=== PATIENT | female | born 1985 | race Caucasian/White ===

== ENCOUNTER 2018-01-28 06:12 | Emergency (ER) | payer OTHER ==
--- NOTE | 2018-01-28 06:28 | EDM.PDOC ---
<CevallosGiacomo - Last Filed: 01/28/18 07:21> ED HPI GENERAL MEDICAL PROBLEM - General Chief Complaint: Lower Extremity Injury/Pain Stated Complaint: PAIN ON RIGHT SIDE OF LEG Time Seen by Provider: 01/28/18 06:28 Source of Information: Reports: Patient - History of Present Illness INITIAL COMMENTS - FREE TEXT/NARRATIVE: HISTORY AND PHYSICAL: History of present illness: 33-year-old female presented numerous department with chief complaint of back pain with radiation to her right leg after fall yesterday. Patient states that she tripped over a towel on the floor in her bathroom falling on her but predominantly on the right side. She had some immediate pain that thought that the pain would get better with time. States that this morning she woke up and the pain was worse. Pain is predominantly in her lower back radiating into her right lower extremity. She denies any decrease in sensation or strength. She has had decrease in range of motion secondary to pain. She denies any bowel or bladder incontinence. She has never had back problems or injuries prior to this. On exam patient is usually tender to palpation along L3-S1. Pelvis is stable. There is some right paraspinal muscle spasms noted along L3-S1 Review of systems: As per history of present illness and below otherwise all systems reviewed and negative. Past medical history: As per history of present illness and as reviewed below otherwise noncontributory. Surgical history: As per history of present illness and as reviewed below otherwise noncontributory. Social history: No reported history of drug or alcohol abuse. Family history: As per history of present illness and as reviewed below otherwise noncontributory. Physical exam: HEENT: Atraumatic, normocephalic, pupils reactive, negative for conjunctival pallor or scleral icterus, mucous membranes moist, throat clear, neck supple, nontender, trachea midline. Lungs: Clear to auscultation, breath sounds equal bilaterally, chest nontender. Heart: S1S2, regular, negative for clicks, rubs, or JVD. Abdomen: Soft, nondistended, nontender. Negative for masses or hepatosplenomegaly. Negative for costovertebral tenderness. Pelvis: Stable nontender. Genitourinary: Deferred. Rectal: Deferred. Extremities: Atraumatic, negative for cords or calf pain. Neurovascular unremarkable. Neuro: Awake, alert, oriented. Cranial nerves II through XII unremarkable. Cerebellum unremarkable. Motor and sensory unremarkable throughout. Exam nonfocal. Diagnostics: Lumbar x-ray, right hip x-ray Therapeutics: Toradol 60 mg IM 1 Impression: Contusion Plan: [] Leg Pain Score (Numeric/FACES): 8 - Related Data Allergies Allergy/AdvReac Type Severity Reaction Status Date / Time No Known Allergies Allergy Verified 01/28/18 06:32 Home Meds: Home Meds . [No Known Home Meds] 05/25/15 [History] Past Medical History - Past Health History Medical/Surgical History: Denies Medical/Surgical History Social & Family History - Tobacco Use Smoking Status *Q: Current Every Day Smoker Years of Tobacco use: 2 Packs/Tins Daily: 0.2 Course - Vital Signs Last Recorded V/S: Last Vital Signs Temp 97.7 F 01/28/18 06:29 Pulse 67 01/28/18 06:29 Resp 20 01/28/18 06:29 BP 150/110 H 01/28/18 06:29 Pulse Ox 99 01/28/18 06:29 - Orders/Labs/Meds Orders: Active Orders 24 hr Category Date Time Status Hip Min 2V or 3V Rt [CR] Stat Exams 01/28/18 06:31 Taken Lumbar Spine 2 or 3V [CR] Stat Exams 01/28/18 06:31 Taken HCG QUALITATIVE,URINE [URCHEM] Stat Lab 01/28/18 06:55 Ordered Labs: Laboratory Tests 01/28/18 Range/Units 06:55 Urine HCG, Qual NEGATIVE (NEGATIVE) Meds: Medications Discontinued Medications Generic Name Dose Route Start Last Admin Trade Name Maurice PRN Reason Stop Dose Admin Ketorolac Tromethamine 60 mg 01/28/18 06:32 01/28/18 06:41 Toradol IM 01/28/18 06:33 60 mg ONETIME ONE Administration Departure - Departure Disposition: Home, Self-Care 01 Clinical Impression: Contusion - Discharge Information Referrals: PCP,None [Primary Care Provider] - Forms: ED Department Discharge Additional Instructions: Medication as prescribed Return if symptoms persist or worsen Ice 20 minute intervals 3 times daily Crutches as needed Follow-up with primary care on Saturday as scheduled [address] [address] The following information is given to patients seen in the emergency department who are being discharged to home. This information is to outline your options for follow-up care. We provide all patients seen in our emergency department with a follow-up referral. The need for follow-up, as well as the timing and circumstances, are variable depending upon the specifics of your emergency department visit. If you don't have a primary care physician on staff, we will provide you with a referral. We always advise you to contact your personal physician following an emergency department visit to inform them of the circumstance of the visit and for follow-up with them and/or the need for any referrals to a consulting specialist. The emergency department will also refer you to a specialist when appropriate. This referral assures that you have the opportunity for follow-up care with a specialist. All of these measure are taken in an effort to provide you with optimal care, which includes your follow-up. Under all circumstances we always encourage you to contact your private physician who remains a resource for coordinating your care. When calling for follow-up care, please make the office aware that this follow-up is from your recent emergency room visit. If for any reason you are refused follow-up, please contact the [facility] emergency department at and asked to speak to the emergency department charge nurse. <Geo Rich - Last Filed: 01/28/18 08:20> ED HPI GENERAL MEDICAL PROBLEM - History of Present Illness INITIAL COMMENTS - FREE TEXT/NARRATIVE: I've seen and examined the patient by received in sign out Agree with historyNo fever nausea vomiting chills sweats no bowel or urine symptoms no footdrop or saddle anesthesia Gen. no acute distress HEENT grossly within normal limits denies head injury or loss of consciousness Chest clear throughout CV regular rate and rhythm Abdomen benign Extremities full range of motion strength 5 out of 5 no edema no calf pain straight leg raise 30 re- produces leg pain to the level of the right foot Impression Contusion Possible transverse fracture, vertebral Question discogenic pain Therapeutics Toradol 60 IM provided Toradol 10 by mouth 3 times a day #15 no refill Flexeril Follow-up with primary care as scheduled on Definitive disposition and diagnosis pending reevaluation and review of above Review of Systems - Review of Systems Review Of Systems: See Below ED EXAM, GENERAL - Physical Exam Exam: See Below Departure - Departure Time of Disposition: 08:19 Condition: Good
[2018-01-28] MEDS ORDERED: Ketorolac 60 MG/2 ML SDV IM ONE (06:32)
[2018-01-28 08:48] VITALS: BP 166/87
--- NOTE | 2018-01-28 09:36 | CR ---
EXAM DATE: 01/28/18 PATIENT'S AGE: 33 Patient: BEVERLY DE LA PAZ Facility: [place], [place] Site Patient ID: [id number]. Site : 1985 Study: XRay Hip Right [id number]/[id number] 7:37:38 AM Ordering Physician: Doctor Eastman Final Report: Indication: Injury and pain Technique: Right hip 2 views Comparison: None Findings: Bones: Alignment is normal. No fractures or bone lesions. Joint spaces: Unremarkable. Soft tissues: Unremarkable. Impression: No sign of acute injury. Dictated by Bernabe Godinez MD @ Jan 28 2018 7:54AM (Electronic Signature) Report Signed by Proxy. RODERICK
--- NOTE | 2018-01-28 09:37 | CR ---
EXAM DATE: 01/28/18 PATIENT'S AGE: 33 Patient: BEVERLY DE LA PAZ Facility: [place], [place] Site Patient ID: [id number]. Site : 1985 Study: XRay Spine Lumbar [id number]/3/2018 7:38:12 AM Ordering Physician: Doctor Eastman Final Report: INDICATION: Fall with low back pain TECHNIQUE: Lumbar spine 3 view COMPARISON: None FINDINGS: Bones: Alignment is normal. There is a possible nondisplaced fracture in the proximal aspect of the right transverse process at L1. No other sign of fracture. Joints: Disc spaces and facets are unremarkable. Soft tissues: Unremarkable. IMPRESSION: Possible fracture in the right transverse process of L1. Remainder of the exam is unremarkable. Dictated by Bernabe Godinez MD @ Jan 28 2018 7:55AM (Electronic Signature) Report Signed by Proxy. RODERICK
== END 2018-01-28 08:45 | disposition home or self-care (01) ==
LOC: MW.ED 06:12
DX: S30.0XXA Contusion of lower back and pelvis, initial encounter (principal); W18.09XA Striking against other object with subsequent fall, initial encounter; Y92.002 Bathroom of unspecified non-institutional (private) residence as the place of occurrence of the external cause; F17.210 Nicotine dependence, cigarettes, uncomplicated
CPT/HCPCS: 72100; 73502; 81025; 96372; 99283; J1885